=== PATIENT | female | born 1990 | race American Indian/Alaskan Native ===

== ENCOUNTER 2021-03-05 20:42 | Inpatient (IN) | payer MEDICAID ==
--- NOTE | 2021-03-06 00:12 | Ultrasound Report ---
ULTRASOUND OBSTETRIC LIMITED ULTRASOUND BIOPHYSICAL PROFILE INDICATION / CLINICAL INFORMATION: BPP. well-being Clinical Gestational Age (GA) in weeks, days: 40 weeks 0 days TECHNIQUE: Transabdominal. COMPARISON: None available. FINDINGS: BREATHING MOVEMENT = 2 GROSS BODY MOVEMENT = 2 TONE = 2 QUALITATIVE AMNIOTIC FLUID VOLUME = 2 TOTAL BIOPHYSICAL SCORE = 8/8 HEART RATE (beats per minute): 131 AMNIOTIC FLUID INDEX (cm) = 11.5 (normal = 7-24 cm) PRESENTATION: Cephalic. ADDITIONAL FINDINGS: None. IMPRESSION: 1. Biophysical Score = 8/8 2. Single viable IUP in a cephalic presentation. Signer Name: Ambar Vila MD Signed: 03/06/2021 12:07 AM Workstation Name: [id number]
[2021-03-06] MEDS ORDERED: MINERAL OIL 30 ML ORAL LIQD PO PRN (00:20)
[2021-03-06] MEDS ORDERED: fentaNYL 100 MCG/2 ML INJ IV PRN (00:20)
[2021-03-06] MEDS ORDERED: TERBUTALINE 1 MG/1 ML INJ SUB-Q PRN (00:20)
[2021-03-06] MEDS ORDERED: ePHEDrine SULFATE 50 MG/1 ML INJ IV PRN (00:20)
[2021-03-06] MEDS ORDERED: LIDOCAINE (2%) 20 MG/1 ML VIAL 20 ML MDV INFILTRATI ONE (00:20)
[2021-03-06] MEDS ORDERED: LACTATED RINGERS 1,000 ML IV SCH (00:30)
--- NOTE | 2021-03-06 00:36 | History and Physical Report ---
History of Present Illness Date of examination: 03/06/21 Date of admission: 03/06/2021 Chief complaint: Contractions History of present illness: 30 year old presents to L&D with contractions. Patient denies LOF or VB. Patient reports active movement. Patient received care at [facility] and recrods are available. LMP 05/29/2020. EDC 03/05/2021. 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 labs are as follows: O+, antibody screen negative, rubella immune, pap smear negative, hepatitis B surface antigen negative, HIV negative, RPR nonreactive, varicella immune, HSV2 positive, hemoglobin electrophoresis AA, gonorrhea negative, chlamydia negative, trichomonas negative, materniT 21 low risk, 1 hour sugar test 137, GBS negative. Past History Past Medical History: other (morbid obesity) Past Surgical History: no surgical history [facility] History: herpes. denies: chlamydia, gonorrhea, hepatitis B, hepatitis C, HIV, syphilis, trichomonas (has been taking Valtrex for suppression; denies lesions or prodromal symptoms) - Obstetrical History : 2 Medications and Allergies Allergies Allergy/AdvReac Type Severity Reaction Status Date / Time No Known Allergies Allergy Verified 03/06/21 00:33 Active Meds: Active Medications Ephedrine Sulfate (Ephedrine Sulfate 50 Mg/1 Ml Inj) 10 mg IV Q2M PRN PRN Reason: Hypotension Fentanyl (Fentanyl 100 Mcg/2 Ml Inj) 100 mcg IV Q2H PRN PRN Reason: Pain,Severe (7-10) LABOR PAIN Oxytocin/Sodium Chloride (Pitocin/Ns 30 Unit/500ml) 30 units in 500 mls @ 2 mls/hr IV TITR JEANETH; Protocol Lactated Ringer's (Lactated Ringers) 1,000 mls @ 125 mls/hr IV DIRECT JEANETH Oxytocin/Sodium Chloride (Pitocin/Ns 30 Unit/500ml) 30 units in 500 mls @ 40 mls/hr IV TITR JEANETH; Protocol Lidocaine (Lidocaine (2%) 20 Mg/1 Ml Vial 20 Ml Mdv) 20 ml INFILTRATI ONCE ONE Stop: 03/06/21 00:21 Mineral Oil (Mineral Oil 30 Ml Oral Liqd) 30 ml PO QHS PRN PRN Reason: Constipation Terbutaline Sulfate (Terbutaline 1 Mg/1 Ml Inj) 0.25 mg SUB-Q ONCE PRN PRN Reason: Hyperstimulation/Hypertonicity Review of Systems All systems: negative (contractions) - Vital Signs Vital signs: Vital Signs Pulse Pulse Ox 86 98 03/05/21 21:26 03/05/21 21:26 Temp Pulse Resp BP Pulse Ox 98 F 80 18 92/62 99 03/05/21 21:29 03/05/21 22:56 03/05/21 21:29 03/05/21 21:29 03/05/21 22:56 - Physical Exam Abdomen: Positive: normal appearance, soft. Negative: distention, tenderness, guarding, rigidity Genitourinary (Female): Positive: normal external genitalia, normal perenium. Negative: perineal/vulvar lesions Vagina: Positive: normal moisture Uterus: Positive: enlarged. Negative: tender Anus/Rectum: Positive: normal perianal skin Extremities: Positive: normal - Obstetrical FHR: category 2 FHR comments: Periods of minimal FHR variability, 1 late deceleration noted on FHR tracing. Uterine Contraction Monitor Mode: External Cervical Dilatation: 4.5 Cervical Effacement Percentage: 50 station: -3 Uterine Contraction Pattern: Regular Uterine Contraction Intensity: Moderate Results All other labs normal. Assessment and Plan A: at 40 weeks, 1 day gestation. Morbid obesity. Early labor. GBS negative. Category 2 FHR tracing. P: Admit. Continuous EFM. Pitocin augmentation of labor. Discussed with patient plan of care and patient states she is in agreement with POC.
[2021-03-06 00:46] LABS: Hemoglobin 12.2 gm/dl (10.1-14.3); Mean Corpuscular HGB Conc 34 % (30-34); Mean Corpuscular Volume 86 fl (79-97); Platelet Count 226 K/mm3 (140-440); Red Blood Count 4.17 M/mm3 (3.65-5.03); Red Cell Distribution Width 14.7 % (13.2-15.2)
[2021-03-06] MEDS ORDERED: valACYclovir 500 MG TAB PO SCH (01:00)
[2021-03-06] MEDS ORDERED: OXYTOCIN DRIP 30 UNITS/500 ML BAG IV SCH ×2 (01:00)
[2021-03-06 02:45] LABS: Amphetamine Screen,Urine PRESUMPTIVE NEGATIVE; Benzodiazepines Screen,Urine PRESUMPTIVE NEGATIVE; Cannabinoid Screen,Urine PRESUMPTIVE NEGATIVE; Cocaine Screen,Urine PRESUMPTIVE NEGATIVE; Methadone Screen,Urine PRESUMPTIVE NEGATIVE; Opiate Screen,Urine PRESUMPTIVE NEGATIVE
--- NOTE | 2021-03-06 07:54 | Event Note ---
Date: 03/06/21 Care of patient turned over to Dr. Watt at 08:00 today.
[2021-03-06 08:27] VITALS: BP 125/63
--- NOTE | 2021-03-06 09:15 | Progress Note ---
Subjective - Subjective Date of service: 03/06/21 Interval history: Pt seen and examined on AM rounds cervix unchanged /-2 fetus confirmed vertex on US antepartum testing reassuring 05/09 pt has plan for IOL on Monday03/09/21: if she decides to stay plan for cytotec 25mcg series for IOL. pt considering d/c to home in early labor with FM and labor precautions Madison Watt MD Objective - Vital Signs Vital Signs: Vital Signs - 12hr 03/05/21 03/05/21 03/05/21 21:26 21:29 21:31 Temperature 98 F Pulse Rate 86 93 H 101 H Respiratory 18 Rate Blood Pressure 92/62 Blood Pressure 92/62 [Right] O2 Sat by Pulse 98 98 98 Oximetry 03/05/21 03/05/21 03/05/21 21:36 21:41 21:46 Temperature Pulse Rate 90 86 94 H Respiratory Rate Blood Pressure Blood Pressure [Right] O2 Sat by Pulse 98 98 98 Oximetry 03/05/21 03/05/21 03/05/21 21:51 21:56 22:01 Temperature Pulse Rate 97 H 88 91 H Respiratory Rate Blood Pressure Blood Pressure [Right] O2 Sat by Pulse 98 98 97 Oximetry 03/05/21 03/05/21 03/05/21 22:06 22:11 22:16 Temperature Pulse Rate 98 H 88 88 Respiratory Rate Blood Pressure Blood Pressure [Right] O2 Sat by Pulse 97 97 97 Oximetry 03/05/21 03/05/21 03/05/21 22:21 22:26 22:31 Temperature Pulse Rate 88 90 93 H Respiratory Rate Blood Pressure Blood Pressure [Right] O2 Sat by Pulse 98 98 97 Oximetry 03/05/21 03/05/21 03/05/21 22:36 22:41 22:46 Temperature Pulse Rate 87 88 81 Respiratory Rate Blood Pressure Blood Pressure [Right] O2 Sat by Pulse 99 99 99 Oximetry 03/05/21 03/05/21 03/06/21 22:51 22:56 01:46 Temperature Pulse Rate 90 80 77 Respiratory 18 Rate Blood Pressure Blood Pressure 115/69 [Right] O2 Sat by Pulse 98 99 Oximetry 03/06/21 03/06/21 03/06/21 03:06 03:10 03:11 Temperature Pulse Rate 82 81 78 Respiratory Rate Blood Pressure 100/59 Blood Pressure [Right] O2 Sat by Pulse 96 98 Oximetry 03/06/21 03/06/21 03/06/21 03:16 03:21 03:26 Temperature Pulse Rate 80 81 84 Respiratory Rate Blood Pressure Blood Pressure [Right] O2 Sat by Pulse 97 97 97 Oximetry 03/06/21 03/06/21 03/06/21 03:31 03:36 03:41 Temperature Pulse Rate 77 77 86 Respiratory Rate Blood Pressure 108/60 Blood Pressure [Right] O2 Sat by Pulse 97 96 99 Oximetry 03/06/21 03/06/21 03/06/21 03:46 03:51 03:56 Temperature Pulse Rate 75 79 96 H Respiratory Rate Blood Pressure Blood Pressure [Right] O2 Sat by Pulse 98 97 96 Oximetry 03/06/21 03/06/21 03/06/21 03:57 04:01 04:03 Temperature Pulse Rate 84 99 H 78 Respiratory Rate Blood Pressure Blood Pressure [Right] O2 Sat by Pulse 94 100 92 Oximetry 03/06/21 03/06/21 03/06/21 04:06 04:10 04:11 Temperature Pulse Rate 82 77 81 Respiratory Rate Blood Pressure 117/68 Blood Pressure [Right] O2 Sat by Pulse 98 98 Oximetry 03/06/21 03/06/21 03/06/21 04:16 04:21 04:26 Temperature Pulse Rate 80 83 78 Respiratory Rate Blood Pressure Blood Pressure [Right] O2 Sat by Pulse 97 97 97 Oximetry 03/06/21 03/06/21 03/06/21 04:31 04:36 04:40 Temperature Pulse Rate 78 79 76 Respiratory Rate Blood Pressure 112/59 Blood Pressure [Right] O2 Sat by Pulse 97 97 92 Oximetry 03/06/21 03/06/21 03/06/21 04:41 04:46 04:51 Temperature Pulse Rate 79 76 81 Respiratory Rate Blood Pressure Blood Pressure [Right] O2 Sat by Pulse 97 96 98 Oximetry 03/06/21 03/06/21 03/06/21 04:56 05:01 05:06 Temperature Pulse Rate 79 86 75 Respiratory Rate Blood Pressure Blood Pressure [Right] O2 Sat by Pulse 98 99 97 Oximetry 03/06/21 03/06/21 03/06/21 05:10 05:11 05:16 Temperature Pulse Rate 76 79 76 Respiratory Rate Blood Pressure 108/73 Blood Pressure [Right] O2 Sat by Pulse 99 97 Oximetry 03/06/21 03/06/21 03/06/21 05:19 05:21 05:26 Temperature Pulse Rate 88 79 82 Respiratory Rate Blood Pressure Blood Pressure [Right] O2 Sat by Pulse 93 98 97 Oximetry 03/06/21 03/06/21 03/06/21 05:27 05:31 05:36 Temperature Pulse Rate 86 83 76 Respiratory Rate Blood Pressure Blood Pressure [Right] O2 Sat by Pulse 93 98 98 Oximetry 03/06/21 03/06/21 03/06/21 05:41 06:04 06:09 Temperature Pulse Rate 86 88 80 Respiratory Rate Blood Pressure Blood Pressure [Right] O2 Sat by Pulse 99 99 97 Oximetry 03/06/21 03/06/21 03/06/21 06:11 06:14 06:19 Temperature Pulse Rate 77 81 84 Respiratory Rate Blood Pressure 111/68 Blood Pressure [Right] O2 Sat by Pulse 99 99 Oximetry 03/06/21 03/06/21 03/06/21 06:24 06:29 06:34 Temperature Pulse Rate 76 79 77 Respiratory Rate Blood Pressure Blood Pressure [Right] O2 Sat by Pulse 98 97 98 Oximetry 03/06/21 03/06/21 03/06/21 06:39 06:41 06:42 Temperature Pulse Rate 76 76 75 Respiratory Rate Blood Pressure 101/62 Blood Pressure [Right] O2 Sat by Pulse 98 94 Oximetry 03/06/21 03/06/21 03/06/21 06:44 06:48 06:49 Temperature Pulse Rate 80 73 79 Respiratory Rate Blood Pressure Blood Pressure [Right] O2 Sat by Pulse 96 93 96 Oximetry 03/06/21 03/06/21 03/06/21 06:54 06:59 07:00 Temperature Pulse Rate 76 79 79 Respiratory Rate Blood Pressure Blood Pressure [Right] O2 Sat by Pulse 96 96 93 Oximetry 03/06/21 03/06/21 03/06/21 07:04 07:06 07:09 Temperature Pulse Rate 87 83 90 Respiratory Rate Blood Pressure Blood Pressure [Right] O2 Sat by Pulse 94 93 100 Oximetry 03/06/21 03/06/21 03/06/21 07:11 07:14 07:19 Temperature Pulse Rate 89 64 84 Respiratory Rate Blood Pressure 126/62 Blood Pressure [Right] O2 Sat by Pulse 100 97 Oximetry 03/06/21 03/06/21 03/06/21 07:20 07:21 07:24 Temperature 97.9 F Pulse Rate 80 74 84 Respiratory 14 Rate Blood Pressure 111/64 Blood Pressure 111/64 [Right] O2 Sat by Pulse 100 99 Oximetry 03/06/21 03/06/21 03/06/21 07:29 07:34 07:39 Temperature Pulse Rate 86 93 H 89 Respiratory Rate Blood Pressure Blood Pressure [Right] O2 Sat by Pulse 99 98 99 Oximetry 03/06/21 03/06/21 03/06/21 07:40 07:44 07:49 Temperature Pulse Rate 83 89 80 Respiratory Rate Blood Pressure 96/52 Blood Pressure [Right] O2 Sat by Pulse 97 98 Oximetry 03/06/21 03/06/21 03/06/21 07:54 07:59 08:04 Temperature Pulse Rate 83 83 85 Respiratory Rate Blood Pressure Blood Pressure [Right] O2 Sat by Pulse 98 98 97 Oximetry 03/06/21 03/06/21 03/06/21 08:09 08:14 08:19 Temperature Pulse Rate 86 86 80 Respiratory Rate Blood Pressure Blood Pressure [Right] O2 Sat by Pulse 99 98 99 Oximetry 03/06/21 03/06/21 03/06/21 08:24 08:25 08:29 Temperature Pulse Rate 84 81 81 Respiratory Rate Blood Pressure 125/63 Blood Pressure [Right] O2 Sat by Pulse 99 97 Oximetry 03/06/21 03/06/21 03/06/21 08:34 08:39 08:44 Temperature Pulse Rate 86 79 80 Respiratory Rate Blood Pressure Blood Pressure [Right] O2 Sat by Pulse 99 97 99 Oximetry 03/06/21 03/06/21 03/06/21 08:49 08:54 08:59 Temperature Pulse Rate 78 78 85 Respiratory Rate Blood Pressure Blood Pressure [Right] O2 Sat by Pulse 98 98 98 Oximetry - Labs Labs: Laboratory Results - last 24 hr 03/05/21 03/06/21 03/06/21 02:25 00:25 00:25 WBC 7.2 RBC 4.17 Hgb 12.2 Hct 36.0 MCV 86 MCH 29 MCHC 34 RDW 14.7 Plt Count 226 Urine Opiates Screen Presumptive negative Urine Methadone Screen Presumptive negative Ur Barbiturates Screen Presumptive negative Ur Phencyclidine Scrn Presumptive negative Ur Amphetamines Screen Presumptive negative U Benzodiazepines Scrn Presumptive negative Urine Cocaine Screen Presumptive negative U Marijuana (THC) Screen Presumptive negative Drugs of Abuse Note Disclamer Syphilis IgG Antibody Blood Type O POSITIVE Antibody Screen Negative 03/06/21 00:25 WBC RBC Hgb Hct MCV MCH MCHC RDW Plt Count Urine Opiates Screen Urine Methadone Screen Ur Barbiturates Screen Ur Phencyclidine Scrn Ur Amphetamines Screen U Benzodiazepines Scrn Urine Cocaine Screen U Marijuana (THC) Screen Drugs of Abuse Note Syphilis IgG Antibody Nonreactive Blood Type Antibody Screen
--- NOTE | 2021-03-06 09:16 | Discharge Summary ---
Providers - Providers Date of Admission: 03/06/21 00:20 Date of discharge: 03/06/21 Attending physician: ELI JAMES MD Primary care physician: ELI JAMES MD Hospitalization Reason for admission: other (not in labor) Condition at discharge: Stable Disposition: DC-01 TO HOME OR SELFCARE Plan - Provider Discharge Summary Diet: routine Additional instructions: [] Smoking cessation referral if applicable(refer to patient education folder for contact #) [] Refer to [facility] Booklet Call your doctor immediately for: * Fever > 100.5 * Heavy vaginal bleeding ( >1 pad per hour) * Severe persistent headache * Shortness of breath * Reddened, hot, painful area to leg or breast * Drainage or odor from incision. * Keep incision clean and dry at all times and follow doctor's instructions regarding bathing/showering - Follow up plan Follow up: ELI JAMES MD [Primary Care Provider] - 7 Days
--- NOTE | 2021-03-06 09:30 | Ultrasound Report ---
US OB limited INDICATION / CLINICAL INFORMATION: Presentation. COMPARISON: One day prior. FINDINGS: Amniotic fluid index is 8.1 cm (previously 11.5 cm). lie is cephalic. heart rate is 142. IMPRESSION: 1. lie is cephalic. 2. NITIN is 8.1 cm (measured at 11.5 cm one day prior). Signer Name: Benito Faustin MD Signed: 03/06/2021 9:25 AM Workstation Name: [id number]
--- NOTE | 2021-03-06 09:43 | Ultrasound Report ---
ULTRASOUND BIOPHYSICAL PROFILE INDICATION: demetri. COMPARISON: One day prior. FINDINGS: breathing movement = 2 Gross body movement = 2 tone = 2 Qualitative amniotic fluid volume = 2 Total biophysical score = 8/8 Amniotic fluid index is 8.5 cm. Presentation is Cephalic. heart rate is 141 beats per minute. IMPRESSION: biophysical profile = 05/09 Signer Name: Benito Faustin MD Signed: 03/06/2021 9:39 AM Workstation Name: [id number]
== END 2021-03-06 09:32 | disposition home or self-care (01) | DRG 781 ==
LOC: TRG 20:42 → APU 20:51 → LD 03-06 00:20 → TRG 03-06 00:20
PROVIDERS: ADMIT Obstetrics & Gynecology; ATTEND Obstetrics & Gynecology
DX: O99.213 Obesity complicating pregnancy, third trimester (principal); O98.313 Other infections with a predominantly sexual mode of transmission complicating pregnancy, third trimester; E66.01 Morbid (severe) obesity due to excess calories; A60.09 Herpesviral infection of other urogenital tract; Z3A.40 40 weeks gestation of pregnancy
CPT/HCPCS: 36415; 76815; 76819; 80307; 85027; 86592; 86850; 86900; 86901; G0378; J2590; J7120

== ENCOUNTER 2021-03-09 15:13 | Inpatient (IN) | payer MEDICAID ==
[2021-03-09] MEDS ORDERED: DINOPROSTONE 10 MG VAG SUPP VG SCH (17:00)
[2021-03-09] MEDS ORDERED: LACTATED RINGERS 1,000 ML ONE (17:04)
[2021-03-09] MEDS ORDERED: fentaNYL 100 MCG/2 ML INJ IV PRN (17:30)
[2021-03-09] MEDS ORDERED: BUTORPHANOL 2 MG/1 ML INJ IV PRN (17:30)
[2021-03-09] MEDS ORDERED: TERBUTALINE 1 MG/1 ML INJ SUB-Q PRN (17:30)
[2021-03-09] MEDS ORDERED: ePHEDrine SULFATE 50 MG/1 ML INJ IV PRN (17:30)
[2021-03-09] MEDS ORDERED: ACETAMINOPHEN 325 MG TAB PO PRN (17:30)
[2021-03-09 17:49] LABS: Hematocrit 36.7 % (30.3-42.9); Hemoglobin 12.5 gm/dl (10.1-14.3); Mean Corpuscular HGB Conc 34 % (30-34); Mean Corpuscular Volume 86 fl (79-97); Platelet Count 203 K/mm3 (140-440); Red Blood Count 4.26 M/mm3 (3.65-5.03); Red Cell Distribution Width 14.6 % (13.2-15.2)
[2021-03-09] MEDS ORDERED: OXYTOCIN DRIP 30 UNITS/500 ML BAG IV SCH (18:00)
[2021-03-09] MEDS ORDERED: MINERAL OIL 30 ML ORAL LIQD PO PRN (18:00)
[2021-03-09] MEDS ORDERED: LIDOCAINE (2%) 20 MG/1 ML VIAL 20 ML MDV INFILTRATI SCH (18:00)
--- NOTE | 2021-03-09 18:48 | History and Physical Report ---
History of Present Illness Date of examination: 03/09/21 Date of admission: 03/09/21 16:58 Chief complaint: This 30-year-old -[place] female 2 para 1-0-0-1. She is 40+ weeks . Problem list include a BMI of 43 referred to [facility]. The strep test was negative HSV-2 was positive started on suppression at 36 weeks paraspinal muscles etc. MICHELLE test positive counseled test positive baby. The patient had 8 visits. At the office her blood type was O+ antibody screen was negative hematocrit was 37.9% Pap smear was normal bili was immune VDRL was nonreactive hepatitis B was negative HIV test was negative platelet was 310,000 varicella was immune HSV-2 was positive hemoglobin electrophoresis was 818 gonorrhea and Chlamydia tests were negative trichomonas was also negative. Vitamin D was 10.7 maternal screen maternity T 21 is negative and Rebeka test was also estimated plus hemoglobin was 11.9 hematocrit 36.7 diabetic screen was 137 ultrasound was 24 weeks and 3 days 1- 21 HIV testing was nonreactive 121 ultrasound on 323 2129.5 weeks Chlamydia gonorrhea test was -2 weeks group B strep trichomonas test was negative. Family medical history was negative Past medical history most consistent with genital herpes spinal muscular atrophy. 10/21/2020 vitamin D deficiency 10/29/2020. Past surgical history was negative reproductive history shows her ketamine was age 15 x 30 x 5. This is her second first was full-term The patient is admitted for induction 40+ weeks thank you. Past History Past Medical History: other (OBESITY) Past Surgical History: no surgical history Family/Genetic History: other (SEE HX OF PRESENT ILLNESS.) - Obstetrical History Expected Date of Delivery: 03/09/21 Actual Gestation: 40 Week(s) 0 Day(s) : 2 Para: 1 Hx # Term Pregnancies: 1 Number of Pregnancies: 0 Spontaneous Abortions: 0 Induced : 0 Number of Living Children: 1 Medications and Allergies Allergies Allergy/AdvReac Type Severity Reaction Status Date / Time No Known Allergies Allergy Verified 03/06/21 00:33 Home Medications Medication Instructions Recorded Confirmed Last Taken Type No Known Home Medications [No 03/06/21 03/06/21 Unknown History Reported Home Medications] Active Meds: Active Medications Acetaminophen (Acetaminophen 325 Mg Tab) 650 mg PO Q4H PRN PRN Reason: Pain, Mild (1-3) Butorphanol Tartrate (Butorphanol 2 Mg/1 Ml Inj) 2 mg IV Q2H PRN PRN Reason: Pain , Severe (7-10) Dinoprostone (Dinoprostone 10 Mg Vag Supp) 10 mg VG ONCE JEANETH Stop: 03/10/21 16:59 Ephedrine Sulfate (Ephedrine Sulfate 50 Mg/1 Ml Inj) 10 mg IV Q2M PRN PRN Reason: Hypotension Fentanyl (Fentanyl 100 Mcg/2 Ml Inj) 100 mcg IV Q2H PRN PRN Reason: Pain,Severe (7-10) LABOR PAIN Lactated Ringer's (Lactated Ringers) 1,000 mls @ 125 mls/hr IV DIRECT JEANETH Oxytocin/Sodium Chloride (Pitocin/Ns 30 Unit/500ml) 30 units in 500 mls @ 40 mls/hr IV TITR JEANETH; Protocol Lidocaine (Lidocaine (2%) 20 Mg/1 Ml Vial 20 Ml Mdv) 20 ml INFILTRATI ONCE JEANETH Stop: 03/10/21 17:59 Mineral Oil (Mineral Oil 30 Ml Oral Liqd) 30 ml PO QHS PRN PRN Reason: Constipation Terbutaline Sulfate (Terbutaline 1 Mg/1 Ml Inj) 0.25 mg SUB-Q ONCE PRN PRN Reason: Hyperstimulation/Hypertonicity Review of Systems All systems: negative - Vital Signs Vital signs: Vital Signs Pulse Pulse Ox 92 H 100 03/09/21 16:00 03/09/21 16:00 Temp Pulse Resp BP Pulse Ox 90 100 03/09/21 18:38 03/09/21 18:38 - Physical Exam Breasts: Cardiovascular: Regular rate, Normal S1, Normal S2 Abdomen: Positive: normal appearance, soft, normal bowel sounds. Negative: distention, tenderness Genitourinary (Female): Positive: normal external genitalia Vulva: both: normal Vagina: Positive: normal moisture. Negative: discharge Cervix: Negative: lesion, discharge Uterus: Positive: normal size, normal contour Adnexa: both: normal Anus/Rectum: Positive: normal perianal skin, heme negative. Negative: rectal mass, hemorrhoids Extremities: Deep Tendon Reflex Grade: Normal +2 - Obstetrical FHR: category 1 Cervical Dilatation: 2 Cervical Effacement Percentage: 75 station: -4 Uterine Contraction Frequency (min): NONE Uterine Contraction Pattern: Absent Results Result Diagrams: 03/09/21 17:30 All other labs normal. Assessment and Plan INDUCTION OF LABOR WITH CERVIDIL. - Patient Problems (1) Obesity Current Visit: Yes Status: Chronic Qualifiers: Obesity type: due to excess calories Obesity classification: adult class 3 (BMI >= 40) Serious obesity comorbidity presence: unspecified whether serious comorbidity present
[2021-03-09] MEDS: LACTATED RINGERS 1,000 ML IV SCH (21:47)
[2021-03-09] MEDS: valACYclovir 500 MG TAB PO SCH (23:09)
[2021-03-10] MEDS: LACTATED RINGERS 1,000 ML IV SCH ×2 (05:54→09:50)
--- NOTE | 2021-03-10 08:36 | Anesthesia Consultation ---
Anesthesia Consult and Med Hx Date of service: 03/10/21 - Airway Anesthetic Teeth Evaluation: Good ROM Head & Neck: Adequate Mental/Hyoid Distance: Adequate Mallampati Class: Class II Intubation Access Assessment: Probably Good - Pulmonary Exam CTA: Yes - Cardiac Exam Cardiac Exam: RRR - Pre-Operative Health Status ASA Pre-Surgery Classification: ASA3 Proposed Anesthetic Plan: Epidural - Pulmonary Hx Asthma: No COPD: No Hx Pneumonia: No - Cardiovascular System Hx Hypertension: No - Central Nervous System Hx Seizures: No Hx Psychiatric Problems: No - Endocrine Hx Renal Disease: No Hx End Stage Renal Disease: No Hx Hypothyroidism: No Hx Hyperthyroidism: No - Hematic Hx Anemia: No Hx Sickle Cell Disease: No - Other Systems Hx Alcohol Use: Yes (before ) Hx Obesity: Yes
[2021-03-10] MEDS ORDERED: NALOXONE 2 MG/2 ML INJ IV PRN (09:00)
[2021-03-10] MEDS ORDERED: ePHEDrine SULFATE 50 MG/1 ML INJ IV PRN (09:00)
[2021-03-10] MEDS ORDERED: fentaNYL-BUPIV 2 MCG/ML-0.125% 200 MCG/100 ML BAG EPIDURAL SCH (09:00)
--- NOTE | 2021-03-10 09:06 | Progress Note ---
Labor Epidural - Labor Epidural Start Time: 08:45 Stop Time: 09:00 Performed by:: RODRICK URBANO Procedure: Patient is requesting epidural for labor pain. H&P, and labs reviewed. Procedure explained, questions answered, consent obtained. Patient in sitting position with blood pressure cuff and pulse ox on and working. Timeout performed immediately before start of procedure. Sterile chlorahexadine 0.5% prep/drape. 3 mL 1% lidocaine skin wheal at L[3]-L[4]. 18-gauge [employer] epidural needle advanced to [id number] with saline at 9 cm. Epidural catheter advanced to 15 cm, negative aspiration for blood and csf, negative test dose 3 ml 1.5% lidocaine with epinephrine. Epidural dexmedetomidine [30] mcg administered. Sterile steri-strips and tegaderm applied, followed by tape reinforcement. Patient tolerated procedure well. Ashley ESPINOZA
[2021-03-10] MEDS: valACYclovir 500 MG TAB PO SCH (09:50)
--- NOTE | 2021-03-10 10:38 | Progress Note ---
Assessment and Plan A: IUP @ 40 1/7 Weeks Category I Tracing Active Labor Maternal Obesity GBS Negative P: Continue Pitocin Augmentation AROM Internals X 2 Multiple Maternal Position Changes Subjective - Subjective Date of service: 03/10/21 Patient reports: movement normal, other (Sleeping under epidural anesthesia) Objective - Vital Signs Vital Signs: Vital Signs - 12hr 03/09/21 03/09/21 03/09/21 22:39 22:44 22:49 Temperature Pulse Rate 78 79 85 Respiratory Rate Blood Pressure 112/64 O2 Sat by Pulse 99 98 99 Oximetry 03/09/21 03/09/21 03/09/21 22:54 22:59 23:10 Temperature 98 F Pulse Rate 79 83 Respiratory 17 Rate Blood Pressure O2 Sat by Pulse 99 98 Oximetry 03/09/21 03/09/21 03/09/21 23:11 23:16 23:19 Temperature Pulse Rate 93 H 85 82 Respiratory Rate Blood Pressure 123/83 O2 Sat by Pulse 99 98 94 Oximetry 03/09/21 03/09/21 03/09/21 23:21 23:26 23:31 Temperature Pulse Rate 92 H 85 79 Respiratory Rate Blood Pressure O2 Sat by Pulse 96 99 99 Oximetry 03/09/21 03/09/21 03/09/21 23:36 23:41 23:46 Temperature Pulse Rate 83 87 76 Respiratory Rate Blood Pressure O2 Sat by Pulse 99 96 98 Oximetry 03/09/21 03/09/21 03/10/21 23:51 23:56 00:01 Temperature Pulse Rate 84 79 90 Respiratory Rate Blood Pressure O2 Sat by Pulse 99 97 97 Oximetry 03/10/21 03/10/21 03/10/21 00:06 00:09 00:14 Temperature Pulse Rate 92 H 90 91 H Respiratory Rate Blood Pressure 107/63 O2 Sat by Pulse 99 99 Oximetry 03/10/21 03/10/21 03/10/21 00:19 00:24 00:29 Temperature Pulse Rate 80 83 84 Respiratory Rate Blood Pressure O2 Sat by Pulse 99 96 98 Oximetry 03/10/21 03/10/21 03/10/21 00:34 00:39 00:44 Temperature Pulse Rate 81 87 91 H Respiratory Rate Blood Pressure O2 Sat by Pulse 99 100 98 Oximetry 03/10/21 03/10/21 03/10/21 00:49 00:58 01:03 Temperature Pulse Rate 80 103 H 88 Respiratory Rate Blood Pressure O2 Sat by Pulse 97 100 98 Oximetry 03/10/21 03/10/21 03/10/21 01:08 01:09 01:13 Temperature Pulse Rate 82 78 81 Respiratory Rate Blood Pressure 110/63 O2 Sat by Pulse 97 100 Oximetry 03/10/21 03/10/21 03/10/21 01:18 01:23 01:28 Temperature Pulse Rate 82 84 80 Respiratory Rate Blood Pressure O2 Sat by Pulse 98 96 98 Oximetry 03/10/21 03/10/21 03/10/21 01:33 01:38 01:43 Temperature Pulse Rate 88 81 74 Respiratory Rate Blood Pressure O2 Sat by Pulse 98 98 99 Oximetry 03/10/21 03/10/21 03/10/21 01:48 01:53 01:58 Temperature Pulse Rate 78 92 H 79 Respiratory Rate Blood Pressure O2 Sat by Pulse 98 98 99 Oximetry 03/10/21 03/10/21 03/10/21 02:03 02:08 02:10 Temperature Pulse Rate 80 78 78 Respiratory Rate Blood Pressure 154/93 O2 Sat by Pulse 98 96 Oximetry 03/10/21 03/10/21 03/10/21 02:13 02:18 02:25 Temperature Pulse Rate 84 80 Respiratory Rate Blood Pressure O2 Sat by Pulse 99 100 95 Oximetry 03/10/21 03/10/21 03/10/21 02:30 02:35 02:40 Temperature Pulse Rate 87 75 81 Respiratory Rate Blood Pressure O2 Sat by Pulse 98 97 98 Oximetry 03/10/21 03/10/21 03/10/21 02:45 02:50 02:55 Temperature Pulse Rate 79 86 80 Respiratory Rate Blood Pressure O2 Sat by Pulse 98 98 97 Oximetry 03/10/21 03/10/21 03/10/21 03:00 03:05 03:10 Temperature Pulse Rate 84 90 82 Respiratory Rate Blood Pressure O2 Sat by Pulse 95 99 98 Oximetry 03/10/21 03/10/21 03/10/21 03:15 03:20 03:25 Temperature Pulse Rate 78 77 84 Respiratory Rate Blood Pressure O2 Sat by Pulse 97 96 98 Oximetry 03/10/21 03/10/21 03/10/21 03:30 03:35 03:40 Temperature Pulse Rate 93 H 91 H 86 Respiratory Rate Blood Pressure O2 Sat by Pulse 98 99 97 Oximetry 0603/10/21 03/10/21 03:45 03:50 03:55 Temperature Pulse Rate 70 72 76 Respiratory Rate Blood Pressure O2 Sat by Pulse 98 98 96 Oximetry 03/10/21 03/10/21 03/10/21 04:00 04:05 04:10 Temperature Pulse Rate 77 76 72 Respiratory Rate Blood Pressure O2 Sat by Pulse 95 96 96 Oximetry 03/10/21 03/10/21 03/10/21 04:15 04:17 04:20 Temperature Pulse Rate 77 79 76 Respiratory Rate Blood Pressure O2 Sat by Pulse 96 94 97 Oximetry 03/10/21 03/10/21 03/10/21 04:25 04:30 05:28 Temperature 98 F Pulse Rate 81 78 Respiratory Rate Blood Pressure O2 Sat by Pulse 98 100 Oximetry 03/10/21 03/10/21 03/10/21 05:41 05:42 05:47 Temperature Pulse Rate 77 81 Respiratory Rate Blood Pressure O2 Sat by Pulse 100 82 L 93 Oximetry 03/10/21 03/10/21 03/10/21 05:50 05:52 05:55 Temperature Pulse Rate 84 82 Respiratory Rate Blood Pressure O2 Sat by Pulse 100 93 100 Oximetry 03/10/21 03/10/21 03/10/21 06:00 06:05 06:10 Temperature Pulse Rate 76 83 88 Respiratory Rate Blood Pressure O2 Sat by Pulse 100 98 99 Oximetry 03/10/21 03/10/21 03/10/21 06:15 06:20 06:25 Temperature Pulse Rate 93 H 80 79 Respiratory Rate Blood Pressure O2 Sat by Pulse 97 97 94 Oximetry 03/10/21 03/10/21 03/10/21 06:30 06:34 06:35 Temperature Pulse Rate 75 86 83 Respiratory Rate Blood Pressure O2 Sat by Pulse 97 93 98 Oximetry 03/10/21 03/10/21 03/10/21 06:40 06:42 06:45 Temperature Pulse Rate 75 88 79 Respiratory Rate Blood Pressure O2 Sat by Pulse 95 94 98 Oximetry 03/10/21 03/10/21 03/10/21 06:50 06:51 06:55 Temperature Pulse Rate 85 78 86 Respiratory Rate Blood Pressure O2 Sat by Pulse 96 94 100 Oximetry 03/10/21 03/10/21 03/10/21 07:00 07:51 07:53 Temperature Pulse Rate 92 H 87 80 Respiratory Rate Blood Pressure 126/85 O2 Sat by Pulse 100 99 Oximetry 03/10/21 03/10/21 03/10/21 07:55 07:56 08:01 Temperature 98.3 F Pulse Rate 78 87 Respiratory Rate Blood Pressure O2 Sat by Pulse 99 98 Oximetry 03/10/21 03/10/21 03/10/21 08:06 08:11 08:16 Temperature Pulse Rate 96 H 85 88 Respiratory Rate Blood Pressure O2 Sat by Pulse 100 97 98 Oximetry 03/10/21 03/10/21 03/10/21 08:20 08:21 08:38 Temperature Pulse Rate 89 90 82 Respiratory Rate Blood Pressure O2 Sat by Pulse 92 100 99 Oximetry 03/10/21 03/10/21 03/10/21 08:41 08:43 08:45 Temperature Pulse Rate 88 91 H 87 Respiratory Rate Blood Pressure 125/71 117/69 O2 Sat by Pulse 99 Oximetry 03/10/21 03/10/21 03/10/21 08:47 08:48 08:50 Temperature Pulse Rate 86 84 84 Respiratory Rate Blood Pressure 132/70 113/69 O2 Sat by Pulse 100 Oximetry 03/10/21 03/10/21 03/10/21 08:53 08:56 08:58 Temperature Pulse Rate 89 90 89 Respiratory Rate Blood Pressure 135/72 O2 Sat by Pulse 100 100 Oximetry 03/10/21 03/10/21 03/10/21 09:00 09:02 09:03 Temperature Pulse Rate 86 88 94 H Respiratory Rate Blood Pressure 78/52 107/58 O2 Sat by Pulse 100 Oximetry 03/10/21 03/10/21 03/10/21 09:08 09:13 09:17 Temperature Pulse Rate 78 83 84 Respiratory Rate Blood Pressure 111/68 O2 Sat by Pulse 99 99 Oximetry 03/10/21 03/10/21 03/10/21 09:18 09:23 09:24 Temperature Pulse Rate 81 85 81 Respiratory Rate Blood Pressure 104/61 O2 Sat by Pulse 98 96 Oximetry 03/10/21 03/10/21 03/10/21 09:28 09:33 09:38 Temperature Pulse Rate 84 82 85 Respiratory Rate Blood Pressure O2 Sat by Pulse 97 99 97 Oximetry 03/10/21 03/10/21 03/10/21 09:43 09:47 09:48 Temperature Pulse Rate 74 80 79 Respiratory Rate Blood Pressure 96/54 O2 Sat by Pulse 98 99 Oximetry 03/10/21 03/10/21 03/10/21 09:53 09:58 10:03 Temperature Pulse Rate 78 76 78 Respiratory Rate Blood Pressure O2 Sat by Pulse 98 97 98 Oximetry 03/10/21 03/10/21 03/10/21 10:08 10:13 10:18 Temperature Pulse Rate 79 81 78 Respiratory Rate Blood Pressure 102/67 O2 Sat by Pulse 97 97 99 Oximetry 03/10/21 03/10/21 10:23 10:28 Temperature Pulse Rate 72 84 Respiratory Rate Blood Pressure O2 Sat by Pulse 99 94 Oximetry - Exam Breasts: normal Cardiovascular: Regular rate Lungs: Normal air movement Abdomen: Present: normal appearance, soft Uterus: Present: normal, firm, fundal height above umbilicus FHR: category 1 Uterine Contraction Monitor Mode: Internal Cervical Dilatation: 7 (Large amount of clear fluid upon AROM at 1020) Cervical Effacement Percentage: 90 station: -2 Uterine Contraction Pattern: Irregular Uterine Tone Measurement Phase: Resting Uterine Contraction Intensity: Moderate Extremities: normal - Labs Labs: Laboratory Results - last 24 hr 03/09/21 03/09/21 17:30 17:30 WBC 6.4 RBC 4.26 Hgb 12.5 Hct 36.7 MCV 86 MCH 29 MCHC 34 RDW 14.6 Plt Count 203 Blood Type O POSITIVE Antibody Screen Negative
[2021-03-10] MEDS ORDERED: WITCH HAZEL/ GLYCERIN PAD TP PRN (12:02)
--- NOTE | 2021-03-10 12:09 | Procedure Note ---
OB Delivery Note - Delivery Date of Delivery: 03/10/21 (1141) Surgeon: NASEEM SPENCER Estimated blood loss: other (250) - Vaginal Delivery presentation: vertex Delivery position: OA Intrapartum events: none Delivery induction: cervidil Delivery augmentation: rupture of membranes, pitocin Delivery monitor: internal FHT, internal uterine Route of delivery: Delivery placenta: spontaneous Delivery cord: 3 umbilical vessels Episiotomy: none Delivery laceration: none Anesthesia: epidural Delivery comments: of a live 7'12 female over a intact perineum under epidural anesthesia with Apgars of 8 and 9 at 1141 on 03/07/2021. Infant directly to maternal abd/chest, skin to skin contact. Spontaneous delivery of placenta complete and intact with [place] side presenting at 1146. Fundus is firm and midline located 4 below the U. Lochia is scant. Delayed cord clamping and cutting; Cord cut by the Father of the Baby. Cord blood collected; placenta discarded. - A at 1 minute: 8 at 5 minutes: 9 Gender: Female (7'12)
[2021-03-10] MEDS ORDERED: LANOLIN/ZINC/DIMETHICONE (LANSINOH) 7 GM TP PRN (12:30)
[2021-03-10] MEDS ORDERED: diphenhydrAMINE 25 MG CAP PO PRN (13:30)
[2021-03-10] MEDS: IBUPROFEN 600 MG TAB PO SCH ×2 (13:40→17:46)
[2021-03-10] MEDS: HYDROcodone/ACETAMINOPHEN 5-325 MG TAB PO PRN (20:53)
[2021-03-11] MEDS: IBUPROFEN 600 MG TAB PO SCH ×5 (00:40→22:33)
[2021-03-11 00:59] LABS: Hematocrit 35.4 % (30.3-42.9)
[2021-03-11] MEDS: HYDROcodone/ACETAMINOPHEN 5-325 MG TAB PO PRN ×2 (08:14→18:08)
--- NOTE | 2021-03-11 15:50 | Post Anesthesia Evaluation ---
- Post Anesthesia Evaluation Patient Participated: Yes Airway Patent: Yes Stable Respiratory Function: Yes Nausea/Vomiting: No Temp > 96.8F: Yes Pain Manageable: Yes Adequeate Hydration: Yes Anesthesia Complications: No Block Receding Appropriately: Yes
--- NOTE | 2021-03-11 22:45 | Progress Note ---
Assessment and Plan PPD # 1 A: S/P P: Continue routine pp care Encourage ambulation D/c home tomm if stable Subjective - Subjective Date of service: 03/11/21 Principal diagnosis: s/p Patient reports: appetite normal, voiding normally, pain well controlled, ambulating normally : doing well, nursing well Objective - Vital Signs Latest vital signs: Vital Signs Temp Pulse Resp BP Pulse Ox 03/11/21 22:33 20 03/11/21 18:08 18 03/11/21 16:34 98.2 F 71 18 124/58 97 03/11/21 13:31 18 03/11/21 08:14 18 03/11/21 07:52 98.1 F 81 18 101/54 96 03/11/21 07:14 18 03/11/21 06:23 18 03/11/21 02:31 18 03/11/21 01:40 18 03/11/21 00:40 18 03/11/21 00:38 97.8 F 90 18 111/64 98 Intake and Output 03/11/21 03/11/21 03/11/21 06:59 14:59 22:59 Intake Total 480 300 Output Total 700 Balance -220 300 Intake: Oral 240 Intake, Free Water 240 300 Output: Urine 700 Void 700 Other: Total, Intake Amount 240 Total, Output Amount 700 # Voids Void 2 1 1 - Exam Breasts: Present: normal Abdomen: Present: normal appearance, soft, normal bowel sounds Vulva: both: normal Uterus: Present: normal, firm, fundal height below umbilicus Extremities: Present: normal
[2021-03-12] MEDS: HYDROcodone/ACETAMINOPHEN 5-325 MG TAB PO PRN (00:15)
[2021-03-12] MEDS: IBUPROFEN 600 MG TAB PO SCH (05:51)
--- NOTE | 2021-03-12 12:42 | Progress Note ---
Assessment and Plan A: day 2 S/P . P: Discharge patient home today. Discussed with patient discharge instructions and warning signs. Advised patient to continue taking her vitamin at home. Advised patient to avoid intercourse, lifting, and housework. Advised patient to follow up at [facility] in 6 weeks. Patient voiced understanding of all instructions. Subjective - Subjective Date of service: 03/12/21 Principal diagnosis: day 2 S/P Interval history: Patient desires discharge home today. Doing well; no complaints. Patient reports: appetite normal, voiding normally, pain well controlled, flatus, ambulating normally, no dizzy ambulation, no nauseated [place]: doing well Objective - Vital Signs Latest vital signs: Vital Signs Temp Pulse Resp BP BP Pulse Ox 03/12/21 07:45 98.4 F 68 18 117/67 94 03/12/21 05:51 20 03/12/21 00:15 20 03/12/21 00:00 98.6 F 77 18 114/78 03/11/21 22:33 20 03/11/21 18:08 18 03/11/21 16:34 98.2 F 71 18 124/58 97 03/11/21 13:31 18 Intake and Output 03/11/21 03/12/21 03/12/21 23:59 07:59 15:59 Intake Total 300 120 Balance 300 120 Intake: Oral 120 Intake, Free Water 300 Other: Total, Intake Amount 120 # Voids Void 1 1 1 - Exam Cardiovascular: Present: Regular rate Lungs: Present: Clear to auscultation Abdomen: Present: normal appearance, soft. Absent: distention, tenderness, guarding, rigidity Uterus: Present: normal, firm, fundal height below umbilicus. Absent: bogginess, tenderness Extremities: Present: normal. Absent: tenderness, edema
--- NOTE | 2021-03-12 12:45 | Discharge Summary ---
Providers - Providers Date of Admission: 03/09/21 16:58 Date of discharge: 03/12/21 Attending physician: CARLOS FRAZIER MD Primary care physician: CARLOS FRAZIER MD Hospitalization Reason for admission: induction of labor Delivery: Episiotomy: none Laceration: none Other procedures: none complications: none Discharge diagnosis: IUP at term delivered [place] baby: female Pertinent studies: Labs Hospital course: Stable hospital course Condition at discharge: Good Disposition: DC-01 TO HOME OR SELFCARE - Discharge Diagnoses (1) Term delivered Status: Acute Plan - Provider Discharge Summary Activity: routine, no sex for 6 weeks, no heavy lifting 4 weeks, no strenuous exercise Diet: routine Instructions: routine Additional instructions: Continue taking your vitamin daily at home. Call your doctor immediately for: * Fever > 100.5 * Heavy vaginal bleeding ( >1 pad per hour) * Severe persistent headache * Shortness of breath * Reddened, hot, painful area to leg or breast - Follow up plan Follow up: CARLOS FRAZIER MD [Primary Care Provider] - 6 Weeks Forms: [facility] Discharge Summary
[2021-03-12 14:19] VITALS: BP 135/82
== END 2021-03-12 14:14 | disposition home or self-care (01) | DRG 775 ==
LOC: TRG 15:13 → LD 15:14 → TRG 16:58 → OB 03-10 14:14
PROC: 10E0XZZ Delivery of Products of Conception, External Approach (ICD-10-PCS; principal; 2021-03-10)
PROC: 3E0P7VZ Introduction of Hormone into Female Reproductive, Via Natural or Artificial Opening (ICD-10-PCS; 2021-03-10)
PROC: 10907ZC Drainage of Amniotic Fluid, Therapeutic from Products of Conception, Via Natural or Artificial Opening (ICD-10-PCS; 2021-03-10)
PROC: 3E0R3BZ Introduction of Anesthetic Agent into Spinal Canal, Percutaneous Approach (ICD-10-PCS; 2021-03-10)
PROC: 00HU33Z Insertion of Infusion Device into Spinal Canal, Percutaneous Approach (ICD-10-PCS; 2021-03-10)
DX: O99.214 Obesity complicating childbirth (principal); E66.9 Obesity, unspecified; Z37.0 Single live birth; Z20.822 Contact with and (suspected) exposure to COVID-19; Z3A.40 40 weeks gestation of pregnancy
CPT/HCPCS: 36415; 59200; 85014; 85018; 85027; 86850; 86900; 86901; 96360; 96361; 96365; 99211; G0378; A6250; G0463; J2590; J3010; J7120; U0003